=== PATIENT | female | born 1985 | race Native Hawaiian/Other Pacific Islander ===

== ENCOUNTER 2016-02-11 05:09 | Emergency (ER) | payer BC ==
[~2016-02-11] VITALS: Ht 160 cm; Wt 86.2 kg
[2016-02-11 06:20] LABS: PLATELET COUNT 262 K/uL (152-353)
[2016-02-11 06:29] LABS: POTASSIUM 3.9 mmol/L (3.6-5.2); SODIUM 133 mmol/L (136-145)
[2016-02-11 07:16] VITALS: BP 116/81; TEMP 98
== END 2016-02-11 07:40 | disposition home or self-care (01) ==
LOC: ED 05:09
DX: K52.9 Noninfective gastroenteritis and colitis, unspecified (principal); E11.9 Type 2 diabetes mellitus without complications; N20.0 Calculus of kidney
CPT/HCPCS: 80053; 81000; 85027; 86318; 96361; 96374; 96375; 99284; J1885; J2405

== ENCOUNTER 2016-04-29 16:59 | Emergency (ER) | payer BC ==
[~2016-04-29] VITALS: Ht 160 cm; Wt 86.2 kg
[2016-04-29 18:54] LABS: POTASSIUM 3.7 mmol/L (3.6-5.2); SODIUM 135 mmol/L (136-145)
[2016-04-29 19:40] VITALS: BP 125/83; TEMP 98.5
== END 2016-04-29 19:40 | disposition home or self-care (01) ==
LOC: ED 16:59
PROVIDERS: Emergency Medicine
DX: J06.9 Acute upper respiratory infection, unspecified (principal); J40 Bronchitis, not specified as acute or chronic; R52 Pain, unspecified
CPT/HCPCS: 80053; 87804; 99283

== ENCOUNTER 2016-05-15 13:19 | Emergency (ER) | payer BC ==
[~2016-05-15] VITALS: Ht 160 cm; Wt 81.6 kg
[2016-05-15 13:32] VITALS: TEMP 98.4
[2016-05-15 15:10] VITALS: BP 139/83
== END 2016-05-15 15:10 | disposition home or self-care (01) ==
LOC: ED 13:19
DX: S90.32XA Contusion of left foot, initial encounter (principal); W22.09XA Striking against other stationary object, initial encounter; Y92.098 Other place in other non-institutional residence as the place of occurrence of the external cause
CPT/HCPCS: 99283

== ENCOUNTER 2016-06-16 06:02 | Emergency (ER) | payer BC ==
[~2016-06-16] VITALS: Ht 160 cm; Wt 90.7 kg
[2016-06-16 06:05] VITALS: TEMP 98.2
[2016-06-16] MEDS ORDERED: METFTAB PO (06:37)
[2016-06-16] MEDS ORDERED: GLIP10TA55 PO (06:37)
[2016-06-16 07:06] VITALS: BP 140/86
== END 2016-06-16 07:08 | disposition home or self-care (01) ==
LOC: ED 06:02
DX: R07.89 Other chest pain (principal); M54.2 Cervicalgia
CPT/HCPCS: 93005; 99283

== ENCOUNTER 2017-04-28 16:19 | Emergency (ER) | payer OTHER ==
[~2017-04-28] VITALS: Ht 160 cm; Wt 86.2 kg
[~2017-04-28 16:19] MED LIST: GLIP10TA55 PO; METFTAB PO
[2017-04-28 19:15] VITALS: BP 136/81; TEMP 99
== END 2017-04-28 19:15 | disposition home or self-care (01) ==
LOC: ED 16:19
DX: M43.6 Torticollis (principal); J02.9 Acute pharyngitis, unspecified
CPT/HCPCS: 87077; 87081; 87185; 87186; 87880; 99282